=== PATIENT | female | born 1990 | race Caucasian/White ===

== ENCOUNTER 2020-04-26 16:53 | Emergency (ER) | payer OTHER ==
[~2020-04-26] VITALS: Ht 167.6 cm; Wt 59.5 kg
[2020-04-26] MEDS ORDERED: IBUP200T45 PO (17:00)
[2020-04-26] MEDS ORDERED: LIDOCAINE 5% (LIDODERM) PATCH TD ONE (17:30)
[2020-04-26] MEDS ORDERED: ACETAMINOPHEN 500 MG TAB PO ONE (17:30)
--- NOTE | 2020-04-26 18:21 | REPVR ---
PROCEDURE INFORMATION: Exam: CT Lumbar Spine Without Contrast Exam date and time: 04/26/2020 6:01 PM Age: 29 years old Clinical indication: Low back pain; Additional info: Pain low back >3 mos getting worse, R sided tingling TECHNIQUE: Imaging protocol: Computed tomography images of the lumbar spine without contrast. Radiation optimization: All CT scans at this facility use at least one of these dose optimization techniques: automated exposure control; mA and/or kV adjustment per patient size (includes targeted exams where dose is matched to clinical indication); or iterative reconstruction. COMPARISON: No relevant prior studies available. FINDINGS: Vertebrae: Left-sided spondylolysis at L5. Mild anterolisthesis of L5 on S1. L1-L2: No significant disc protrusion. No severe spinal canal stenosis. No significant neural foraminal narrowing. L2-L3: No significant disc protrusion. No spinal canal stenosis. No neural foraminal narrowing. L3-L4: No significant disc protrusion. No severe spinal canal stenosis. No significant neural foraminal narrowing. L4-L5: No significant disc protrusion. No severe spinal canal stenosis. No significant neural foraminal narrowing. L5-S1: No significant disc protrusion. No severe spinal canal stenosis. No significant neural foraminal narrowing. Sacrum/coccyx: Spinal dysraphism lower lumbar spine and upper sacrum. Soft tissues: Unremarkable. IMPRESSION: 1. Left-sided spondylolysis at L5. Mild anterolisthesis of L5 on S1. 2. Spinal bony disc spaces in lower lumbar spine and upper sacrum. 3. No acute findings. Electronically signed by: Barry Garg On 04/26/2020 18:20:58 PM
[2020-04-26 19:04] VITALS: BP 111/70
[2020-04-27] MEDS ORDERED: **NOTE PATIENT COMMENT** MISC XX ONE (05:30)
== END 2020-04-26 19:04 | disposition home or self-care (01) ==
LOC: M ED 16:53
DX: M51.37 Other intervertebral disc degeneration, lumbosacral region (principal); M43.06 Spondylolysis, lumbar region; X50.0XXA Overexertion from strenuous movement or load, initial encounter; Y92.9 Unspecified place or not applicable; Y93.B9 Activity, other involving muscle strengthening exercises